=== PATIENT | male | born 1965 | race Caucasian/White ===

== ENCOUNTER 2018-07-19 09:24 | Inpatient (IN) | payer OTHER ==
[2018-07-19 10:27] VITALS: BMI 24.1
--- NOTE | 2018-07-19 12:28 | HP ---
CIWA Score - Admission Criteria OASAS Guidelines: Admission for Medically Managed Detox: Requires at least one of the followin. CIWA greater than 12 2. Seizures within the past 24 hours 3. Delirium tremens within the past 24 hours 4. Hallucinations within the past 24 hours 5. Acute intervention needed for co occurring medical disorder 6. Acute intervention needed for co occurring psychiatric disorder 7. Severe withdrawal that cannot be handled at a lower level of care (continued vomiting, continued diarrhea, abnormal vital signs) requiring intravenous medication and/or fluids 8. Admission ROS S - HPI Allergies/Adverse Reactions: Allergies Allergy/AdvReac Type Severity Reaction Status Date / Time No Known Allergies Allergy Verified 07/19/18 13:14 History of Present Illness: pt here requesting rehab for opiate and cocaine use ,referred by [facility] in [facility] where he has been x 6 months for MMTP , current daily dose 90 mg latest taken yesterday , reports 6 bags/day via inhalation , latest used today , denies knowingly using fentanyl . cocaine : "a little bit " , every 2 d, 50 $ /day denies IVDU , first age of use 14 from friends heroin ; since 1 year ago , used to have rx opiates after back surgery 2010 x 2 years , bought illicit opiates until he could no longer afford them and switched to heroin , occasional IVDU regularly via inhalation. tobacco : 1 ppd , does not want to stop in the past : cannabis , not used " in a while " PMHX : GIB 2 mo ago x 10 d [facility] no surgery , reports had BRBPR , told intestinal bleeder , no current bleeding, reports GERD PSHX : L-spine 2009 x 1 , tonsillectomy PSych : bipolar d.o , denies SI / HI meds : Latuda , Lamictal latest taken yesterday . 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 On probation x 3 years started 2 mo ago , monthly , for possession of weapon , total lifetime incarceration 4 years . Reference #: [id number] There are no results for the search terms that you entered. Exam Limitations: No Limitations - Ebola screening Have you traveled outside of the country in the last 21 days: No Have you had contact with anyone from an Ebola affected area: No Have you been sick,other than usual withdrawal symptoms: No Do you have a fever: No - Review of Systems Constitutional: No Symptoms Reported EENT: reports: Other (denies vision loss, + reading glasses , denies dysphagia ) Respiratory: reports: No Symptoms reported Cardiac: reports: No Symptoms Reported GI: reports: See HPI : reports: No Symptoms Reported Musculoskeletal: reports: Back Pain (chronic back pain) Integumentary: reports: No Symptoms Reported Neuro: reports: No Symptoms reported Endocrine: reports: No Symptoms Reported Psychiatric: reports: Orientated x3, Agitated, Anxious Patient History - Smoking Cessation Smoking history: Current every day smoker Have you smoked in the past 12 months: Yes Aproximately how many cigarettes per day: 20 Hx Chewing Tobacco Use: No Initiated information on smoking cessation: No - Substances Abused Cocaine Route: Inhalation Frequency: Daily Amount used: $50 Age of first use: 14 Date of Last Use: 07/17/18 Heroin Route: Inhalation Frequency: 1-2 times per week Amount used: 6 bags Age of first use: 52 Date of Last Use: 07/19/18 Family Disease History - Family Disease History Family Disease History: Other: Father (d. 80 , htn , hld, heart dz, [place] 50's), Mother (A , 79 , htn), Sister (6 , A & W ), Daughter (22 , A & W ) Admission Physical Exam S - Vital Signs Vital Signs: Vital Signs - 24 hr 07/19/18 10:24 Temperature 97.7 F Pulse Rate 64 Respiratory 18 Rate Blood Pressure 134/80 - Physical General Appearance: Yes: Mild Distress HEENTM: Yes: EOMI, Hearing grossly Normal, Normocephalic, Normal Voice, Other Respiratory: Yes: Chest Non-Tender, Lungs Clear, Normal Breath Sounds Neck: Yes: No masses,lesions,Nodules, Trachea in good position Cardiology: Yes: Regular Rhythm, Regular Rate, S1, S2 Abdominal: Yes: Normal Bowel Sounds, Non Tender, Soft Genitourinary: Yes: Within Normal Limits Back: Yes: Surgical Scar Musculoskeletal: Yes: Gait Steady Extremities: Yes: Normal Capillary Refill, Normal Range of Motion, Non-Tender Neurological: Yes: Motor Strength 5/5 [facility] Breath Alcohol Content Breath Alcohol Content: 0 Urine Drug Screen - Results Drug Screen Negative: No Urine Drug Screen Results: KELLI-Cocaine, OPI-Opiates, MTD-Methadone, FEN-Fentanyl Inpatient Rehab Admission - Rehab Decision to Admit Inpatient rehab admission?: No
[2018-07-19] MEDS ORDERED: MAGNESIUM CITRATE 300 ML BOTTLE PO PRN (12:35)
[2018-07-19] MEDS ORDERED: MAGNESIUM HYDROX 2400MG/30ML ORAL SUSPENSION 30 ML CUP PO PRN (12:35)
[2018-07-19] MEDS ORDERED: ACETAMINOPHEN 325 MG TABLET (FP) PO PRN (12:35)
[2018-07-19] MEDS ORDERED: MENTHOL/PHENOL 1 EACH UD MM PRN (12:35)
[2018-07-19] MEDS ORDERED: METHADONE HCL 10 MG TABLET PO ONE (13:59)
[2018-07-19] MEDS ORDERED: METHADONE 80 MG, METHADONE 10 MG PO ONE (14:30)
[2018-07-19 15:40] LABS: HEMATOCRIT 38.8 % (35.4-49); HEMOGLOBIN 13.5 GM/dL (11.7-16.9); MCH 31.5 pg (25.7-33.7); MCHC 34.9 g/dl (32.0-35.9); MEAN CELL VOLUME 90.1 fl (80-96); PLATELET COUNT 245 K/MM3 (134-434); RDW 14.3 % (11.9-15.9); WHITE BLOOD COUNT 8.4 K/mm3 (4.0-10.0)
[2018-07-19 15:56] LABS: ALBUMIN 3.5 g/dl (3.4-5.0); ALK PHOS 87 U/L (45-117); ANION GAP 4 MMOL/L (8-16); BILIRUBIN,TOTAL 0.8 mg/dL (0.2-1); BLOOD UREA NITROGEN 5 mg/dL (7-18); CALCIUM 8.8 mg/dL (8.5-10.1); CHLORIDE 102 mmol/L (98-107); CO2 33 mmol/L (21-32); CREATININE 0.8 mg/dL (0.55-1.3); GLUCOSE,RANDOM 81 mg/dL (74-106); POTASSIUM 3.5 mmol/L (3.5-5.1); SGOT/AST 47 U/L (15-37); SGPT/ALT 26 U/L (13-61); SODIUM 139 mmol/L (136-145); TOT PROT 7.1 g/dl (6.4-8.2)
[2018-07-19] MEDS ORDERED: METHADONE HCL 40 MG DISPERSABLE TABLET PO ONE (16:36)
--- NOTE | 2018-07-19 17:46 | CONSULT ---
[facility] Psychiatric Consult - Data Date of interview: 07/19/18 Admission source: [facility] Identifying data: First admission to [facility] for this 52 y/o male [facility] [place], for rehabilitation to address heroin/cocaine dependence co-morbid with bipolar disorder. Direct admission to [facility]. 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 Substance Abuse History: Confirmed by the patient in this interview. Details in current [facility] report : Smoking history: Current every day smoker. Have you smoked in the past 12 months: Yes. Aproximately how many cigarettes per day: 20. Hx Chewing Tobacco Use: No. Initiated information on smoking cessation: No. - Substances Abused. Cocaine. Route: Inhalation. Frequency: Daily. Amount used: $50. Age of first use: 14. Date of Last Use: 07/17/18. Heroin. Route: Inhalation. Frequency: 1-2 times per week. Amount used: 6 bags. Age of first use: 52. Date of Last Use: 07/19/18 Medical History: GERD, chronic lumbar pain and a history of tonsillectomy. Psychiatric History: Patient endorses a distant history of one psychiatric hospitalization in [place] (20 years ago). Diagnosed with Bipolar Disorder. Mr Roche is currently followed at the [facility] where he sees a psychiatrist for medication management (latuda 40 mg/daily + lamictal 50 mg/daily). Last taken on 07/18/18 as per self-report. Patient is also on [facility]. Denies history of suicide attempts. Physical/Sexual Abuse/Trauma History: Patient denies. Additional Comment: Urine Drug Screen Results: KELLI-Cocaine, OPI-Opiates, MTD- Methadone, FEN-Fentanyl. Noted. Mental Status Exam - Mental Status Exam Alert and Oriented to: Time, Place, Person Cognitive Function: Good Patient Appearance: Well Groomed (tattoos noted on arms and forearms) Mood: Hopeful, Euthymic Affect: Appropriate, Normal Range Patient Behavior: Appropriate, Cooperative Speech Pattern: Clear, Appropriate Voice Loudness: Normal Thought Process: Intact, Goal Oriented Thought Disorder: Not Present Hallucinations: Denies Suicidal Ideation: Denies Homicidal Ideation: Denies Insight/Judgement: Fair Sleep: Well Appetite: Good Muscle strength/Tone: Normal Gait/Station: Normal Psychiatric Findings - Problem List ([place] 1, 2,3) (1) Opioid dependence on agonist therapy Current Visit: Yes Status: Chronic (2) Cocaine dependence Current Visit: Yes Status: Chronic (3) Nicotine dependence Current Visit: Yes Status: Chronic (4) Bipolar disorder Current Visit: Yes Status: Chronic - Initial Treatment Plan Initial Treatment Plan: Psychoeducation. Sleep hygiene. Support. Motivational sessions. Resume latuda 40 mg po daily + lamictal 50 mg po daily (patient is a reliable historian). Side effects/benefits of both drugs are discussed with the patient. Made aware of risk of Keegan Alexis (lamictal). Mr Roche declares that he has not experienced any adverse effects from this regimen. Consents ( verbally) to follow this plan of care. Observation.
[2018-07-19] MEDS: THIAMINE HCL 100 MG TABLET (FP) PO SCH (21:42)
[2018-07-19 23:11] LABS: URINE APPEARANCE CLEAR; URINE BILIRUBIN NEGATIVE (<2.0 mg/dL); URINE COLOR STRAW; URINE GLUCOSE (UA) NEGATIVE (NEGATIVE); URINE KETONE NEGATIVE (NEGATIVE); URINE LEUK ESTERASE NEGATIVE (NEGATIVE); URINE NITRITE NEGATIVE (NEGATIVE); URINE PROTEIN NEGATIVE (NEGATIVE); URINE UROBILINOGEN NEGATIVE mg/dL (0.2-1.0)
[2018-07-20] MEDS ORDERED: METHADONE HCL 40 MG DISPERSABLE TABLET ONE (04:53)
[2018-07-20] MEDS ORDERED: METHADONE HCL 10 MG TABLET ONE (04:53)
[2018-07-20] MEDS ORDERED: METHADONE HCL 10 MG TABLET PO SCH (06:00)
[2018-07-20] MEDS: MAG HYDROX/AL HYDROX/SIMETH 30 ML UNIT-DOSE CUP PO PRN (06:22)
[2018-07-20] MEDS: METHADONE 80 MG, METHADONE 10 MG PO SCH (06:22)
[2018-07-20] MEDS: lamoTRIgine 25 MG TABLET PO SCH (10:38)
[2018-07-20] MEDS: LURASIDONE HCL 40 MG TABLET PO SCH (10:38)
[2018-07-20] MEDS: PRENATAL VITAMINS W/ FOLIC ACID TABLET (FP) PO SCH (10:38)
[2018-07-20] MEDS: IBUPROFEN 400 MG TABLET (FP) PO PRN (10:38)
[2018-07-20] MEDS: THIAMINE HCL 100 MG TABLET (FP) PO SCH (21:53)
[2018-07-21] MEDS ORDERED: METHADONE HCL 40 MG DISPERSABLE TABLET ONE (04:16)
[2018-07-21] MEDS ORDERED: METHADONE HCL 10 MG TABLET ONE (04:16)
[2018-07-21] MEDS: IBUPROFEN 400 MG TABLET (FP) PO PRN ×2 (06:19→22:01)
[2018-07-21] MEDS: METHADONE 80 MG, METHADONE 10 MG PO SCH (06:19)
[2018-07-21] MEDS: LURASIDONE HCL 40 MG TABLET PO SCH (10:17)
[2018-07-21] MEDS: NICOTINE POLACRILEX 2 MG GUM BC PRN (10:17)
[2018-07-21] MEDS: PRENATAL VITAMINS W/ FOLIC ACID TABLET (FP) PO SCH (10:17)
[2018-07-21] MEDS: lamoTRIgine 25 MG TABLET PO SCH (10:17)
[2018-07-21] MEDS: THIAMINE HCL 100 MG TABLET (FP) PO SCH (22:01)
[2018-07-22] MEDS ORDERED: METHADONE HCL 40 MG DISPERSABLE TABLET ONE (03:31)
[2018-07-22] MEDS ORDERED: METHADONE HCL 10 MG TABLET ONE (03:31)
[2018-07-22] MEDS: METHADONE 80 MG, METHADONE 10 MG PO SCH (06:37)
[2018-07-22] MEDS: MAG HYDROX/AL HYDROX/SIMETH 30 ML UNIT-DOSE CUP PO PRN ×2 (06:39→19:54)
[2018-07-22] MEDS: IBUPROFEN 400 MG TABLET (FP) PO PRN ×3 (06:39→21:54)
[2018-07-22] MEDS ORDERED: CYCLOBENZAPRINE HCL 5 MG TABLET PO PRN (09:43)
[2018-07-22] MEDS: LURASIDONE HCL 40 MG TABLET PO SCH (10:40)
[2018-07-22] MEDS: PRENATAL VITAMINS W/ FOLIC ACID TABLET (FP) PO SCH (10:40)
[2018-07-22] MEDS: lamoTRIgine 25 MG TABLET PO SCH (10:40)
[2018-07-22] MEDS: NICOTINE POLACRILEX 2 MG GUM BC PRN ×2 (17:15→21:56)
[2018-07-22] MEDS: THIAMINE HCL 100 MG TABLET (FP) PO SCH (21:54)
[2018-07-23] MEDS: MAG HYDROX/AL HYDROX/SIMETH 30 ML UNIT-DOSE CUP PO PRN ×2 (03:18→09:26)
[2018-07-23] MEDS ORDERED: METHADONE HCL 40 MG DISPERSABLE TABLET ONE (04:18)
[2018-07-23] MEDS ORDERED: METHADONE HCL 10 MG TABLET ONE (04:18)
[2018-07-23] MEDS: METHADONE 80 MG, METHADONE 10 MG PO SCH (06:44)
[2018-07-23] MEDS: lamoTRIgine 25 MG TABLET PO SCH (09:25)
[2018-07-23] MEDS: PRENATAL VITAMINS W/ FOLIC ACID TABLET (FP) PO SCH (09:25)
[2018-07-23] MEDS: LURASIDONE HCL 40 MG TABLET PO SCH (09:25)
--- NOTE | 2018-07-23 14:26 | PN ---
[facility] Progress Note (SOAP) Subjective: Client has thrown up twice today; first time it was "substantive" The next time it was clear. States a history of GI bleed 6 months ago. Last BM yesterday. States he has a BM every other day. Objective: 07/23/18 14:22 CBC WBC 8.4 K/mm3 (4.0-10.0) 07/19/18 13:00 RBC 4.30 M/mm3 (4.00-5.60) 07/19/18 13:00 Hgb 13.5 GM/dL (11.7-16.9) 07/19/18 13:00 Hct 38.8 % (35.4-49) 07/19/18 13:00 MCV 90.1 fl (80-96) 07/19/18 13:00 MCH 31.5 pg (25.7-33.7) 07/19/18 13:00 MCHC 34.9 g/dl (32.0-35.9) 07/19/18 13:00 RDW 14.3 % (11.9-15.9) 07/19/18 13:00 Plt Count 245 K/MM3 (134-434) 07/19/18 13:00 MPV 11.0 fl (7.5-11.1) 07/19/18 13:00 07/23/18 14:23 CMP Sodium 139 mmol/L (136-145) 07/19/18 13:00 Potassium 3.5 mmol/L (3.5-5.1) 07/19/18 13:00 Chloride 102 mmol/L (98-107) 07/19/18 13:00 Carbon Dioxide 33 mmol/L (21-32) H 07/19/18 13:00 Anion Gap 4 MMOL/L (8-16) L 07/19/18 13:00 BUN 5 mg/dL (7-18) L 07/19/18 13:00 Creatinine 0.8 mg/dL (0.55-1.3) 07/19/18 13:00 Creat Clearance w eGFR > 60 (>60) 07/19/18 13:00 Random Glucose 81 mg/dL (74-106) 07/19/18 13:00 Calcium 8.8 mg/dL (8.5-10.1) 07/19/18 13:00 Total Bilirubin 0.8 mg/dL (0.2-1) 07/19/18 13:00 AST 47 U/L (15-37) H 07/19/18 13:00 ALT 26 U/L (13-61) 07/19/18 13:00 Alkaline Phosphatase 87 U/L (45-117) 07/19/18 13:00 Total Protein 7.1 g/dl (6.4-8.2) 07/19/18 13:00 Albumin 3.5 g/dl (3.4-5.0) 07/19/18 13:00 07/23/18 14:23 Vital Signs (72 hours) 07/21/18 07/21/18 07/21/18 00:30 03:30 07:23 Temperature 98.2 F Pulse Rate 74 Respiratory 18 18 18 Rate Blood Pressure 126/70 07/22/18 07/22/18 07/22/18 00:30 03:30 07:03 Temperature 97.7 F Pulse Rate 81 Respiratory 18 18 18 Rate Blood Pressure 105/68 07/23/18 07/23/18 07/23/18 00:30 03:30 07:34 Temperature 97.9 F Pulse Rate 95 H Respiratory 18 18 18 Rate Blood Pressure 111/70 abdomen soft, non-tender, non-distended, positive bowel sounds all 4 quadrants. Assessment: 07/23/18 14:26 gastritis Plan: protonix given. Advised to increase liquids, ambulate.
[2018-07-23] MEDS: NICOTINE POLACRILEX 2 MG GUM BC PRN ×2 (14:31→21:41)
[2018-07-23] MEDS: MELATONIN 5 MG TABLETS PO PRN (21:40)
[2018-07-23] MEDS: THIAMINE HCL 100 MG TABLET (FP) PO SCH (21:40)
[2018-07-24] MEDS ORDERED: METHADONE HCL 10 MG TABLET ONE (05:15)
[2018-07-24] MEDS ORDERED: METHADONE HCL 40 MG DISPERSABLE TABLET ONE (05:15)
[2018-07-24] MEDS: METHADONE 80 MG, METHADONE 10 MG PO SCH (05:55)
[2018-07-24] MEDS: PRENATAL VITAMINS W/ FOLIC ACID TABLET (FP) PO SCH (10:01)
[2018-07-24] MEDS: LURASIDONE HCL 40 MG TABLET PO SCH ×2 (10:01→21:33)
[2018-07-24] MEDS: lamoTRIgine 25 MG TABLET PO SCH ×2 (10:01→21:33)
[2018-07-24] MEDS: PANTOPRAZOLE 20 MG TABLET (FP) PO SCH (10:02)
[2018-07-24] MEDS: THIAMINE HCL 100 MG TABLET (FP) PO SCH (21:33)
[2018-07-24] MEDS: MELATONIN 5 MG TABLETS PO PRN (21:34)
[2018-07-24] MEDS: IBUPROFEN 400 MG TABLET (FP) PO PRN (21:35)
[2018-07-25] MEDS ORDERED: METHADONE HCL 10 MG TABLET ONE (05:17)
[2018-07-25] MEDS ORDERED: METHADONE HCL 40 MG DISPERSABLE TABLET ONE (05:18)
[2018-07-25] MEDS: METHADONE 80 MG, METHADONE 10 MG PO SCH (06:20)
[2018-07-25] MEDS: NICOTINE POLACRILEX 2 MG GUM BC PRN (08:00)
[2018-07-25] MEDS: PRENATAL VITAMINS W/ FOLIC ACID TABLET (FP) PO SCH (10:31)
[2018-07-25] MEDS: PANTOPRAZOLE 20 MG TABLET (FP) PO SCH (10:31)
[2018-07-25] MEDS: IBUPROFEN 400 MG TABLET (FP) PO PRN ×2 (16:50→22:50)
[2018-07-25] MEDS: lamoTRIgine 25 MG TABLET PO SCH (21:35)
[2018-07-25] MEDS: THIAMINE HCL 100 MG TABLET (FP) PO SCH (21:35)
[2018-07-25] MEDS: LURASIDONE HCL 40 MG TABLET PO SCH (21:36)
[2018-07-25] MEDS ORDERED: LURASIDONE HCL 40 MG TABLET PO SCH (22:00)
[2018-07-26] MEDS ORDERED: METHADONE HCL 10 MG TABLET ONE (04:44)
[2018-07-26] MEDS ORDERED: METHADONE HCL 40 MG DISPERSABLE TABLET ONE (04:45)
[2018-07-26] MEDS: METHADONE 80 MG, METHADONE 10 MG PO SCH (06:23)
[2018-07-26] MEDS: NICOTINE POLACRILEX 2 MG GUM BC PRN ×3 (08:01→23:41)
[2018-07-26] MEDS: IBUPROFEN 400 MG TABLET (FP) PO PRN (09:50)
[2018-07-26] MEDS: PRENATAL VITAMINS W/ FOLIC ACID TABLET (FP) PO SCH (09:50)
[2018-07-26] MEDS: PANTOPRAZOLE 20 MG TABLET (FP) PO SCH (09:50)
[2018-07-26] MEDS: lamoTRIgine 25 MG TABLET PO SCH (23:41)
[2018-07-26] MEDS: LURASIDONE HCL 40 MG TABLET PO SCH (23:41)
[2018-07-26] MEDS: THIAMINE HCL 100 MG TABLET (FP) PO SCH (23:41)
[2018-07-26] MEDS: MELATONIN 5 MG TABLETS PO PRN (23:41)
[2018-07-27] MEDS ORDERED: METHADONE HCL 10 MG TABLET ONE (05:20)
[2018-07-27] MEDS ORDERED: METHADONE HCL 40 MG DISPERSABLE TABLET ONE (05:20)
[2018-07-27] MEDS: METHADONE 80 MG, METHADONE 10 MG PO SCH (06:15)
[2018-07-27] MEDS: NICOTINE POLACRILEX 2 MG GUM BC PRN ×2 (06:15→21:03)
[2018-07-27] MEDS: IBUPROFEN 400 MG TABLET (FP) PO PRN (06:16)
[2018-07-27] MEDS: PRENATAL VITAMINS W/ FOLIC ACID TABLET (FP) PO SCH (09:57)
[2018-07-27] MEDS: PANTOPRAZOLE 20 MG TABLET (FP) PO SCH (09:57)
[2018-07-27] MEDS: THIAMINE HCL 100 MG TABLET (FP) PO SCH (21:02)
[2018-07-27] MEDS: LURASIDONE HCL 40 MG TABLET PO SCH (21:02)
[2018-07-27] MEDS: lamoTRIgine 25 MG TABLET PO SCH (21:02)
[2018-07-27] MEDS: MELATONIN 5 MG TABLETS PO PRN (21:02)
[2018-07-28] MEDS ORDERED: METHADONE HCL 10 MG TABLET ONE (03:20)
[2018-07-28] MEDS ORDERED: METHADONE HCL 40 MG DISPERSABLE TABLET ONE (03:21)
[2018-07-28] MEDS: METHADONE 80 MG, METHADONE 10 MG PO SCH (06:29)
[2018-07-28] MEDS: PRENATAL VITAMINS W/ FOLIC ACID TABLET (FP) PO SCH (10:02)
[2018-07-28] MEDS: PANTOPRAZOLE 20 MG TABLET (FP) PO SCH (10:02)
[2018-07-28] MEDS: IBUPROFEN 400 MG TABLET (FP) PO PRN ×2 (10:03→21:05)
[2018-07-28] MEDS: THIAMINE HCL 100 MG TABLET (FP) PO SCH (21:03)
[2018-07-28] MEDS: LURASIDONE HCL 40 MG TABLET PO SCH (21:03)
[2018-07-28] MEDS: MELATONIN 5 MG TABLETS PO PRN (21:04)
[2018-07-28] MEDS: lamoTRIgine 25 MG TABLET PO SCH (21:04)
[2018-07-29] MEDS ORDERED: METHADONE HCL 10 MG TABLET ONE (04:02)
[2018-07-29] MEDS ORDERED: METHADONE HCL 40 MG DISPERSABLE TABLET ONE (04:03)
[2018-07-29] MEDS: METHADONE 80 MG, METHADONE 10 MG PO SCH (06:06)
[2018-07-29] MEDS: PANTOPRAZOLE 20 MG TABLET (FP) PO SCH (09:46)
[2018-07-29] MEDS: PRENATAL VITAMINS W/ FOLIC ACID TABLET (FP) PO SCH (09:46)
[2018-07-29] MEDS: IBUPROFEN 400 MG TABLET (FP) PO PRN ×2 (09:48→21:05)
[2018-07-29] MEDS: NICOTINE POLACRILEX 2 MG GUM BC PRN ×2 (09:49→21:07)
[2018-07-29] MEDS: MELATONIN 5 MG TABLETS PO PRN (21:06)
[2018-07-29] MEDS: LURASIDONE HCL 40 MG TABLET PO SCH (21:07)
[2018-07-29] MEDS: THIAMINE HCL 100 MG TABLET (FP) PO SCH (21:08)
[2018-07-29] MEDS: lamoTRIgine 25 MG TABLET PO SCH (21:08)
[2018-07-30] MEDS ORDERED: METHADONE HCL 40 MG DISPERSABLE TABLET ONE (04:20)
[2018-07-30] MEDS ORDERED: METHADONE HCL 10 MG TABLET ONE (04:20)
[2018-07-30] MEDS: METHADONE 80 MG, METHADONE 10 MG PO SCH (06:17)
[2018-07-30] MEDS: PRENATAL VITAMINS W/ FOLIC ACID TABLET (FP) PO SCH (10:19)
[2018-07-30] MEDS: PANTOPRAZOLE 20 MG TABLET (FP) PO SCH (10:19)
[2018-07-30] MEDS: NICOTINE POLACRILEX 2 MG GUM BC PRN ×2 (10:21→21:09)
[2018-07-30] MEDS: IBUPROFEN 400 MG TABLET (FP) PO PRN ×2 (10:21→21:08)
[2018-07-30] MEDS: hydrOXYzine PAMOATE 25 MG CAPSULE (FP) PO PRN ×2 (10:21→21:09)
--- NOTE | 2018-07-30 14:04 | PN ---
[facility] Progress Note Note: Patient has been complaining of difficulty to sleep not responding to Melatonin. Will add Belsomra 10 mg po HS prn for insomnia
[2018-07-30] MEDS: lamoTRIgine 25 MG TABLET PO SCH (21:07)
[2018-07-30] MEDS: THIAMINE HCL 100 MG TABLET (FP) PO SCH (21:07)
[2018-07-30] MEDS: LURASIDONE HCL 40 MG TABLET PO SCH (21:08)
[2018-07-30] MEDS ORDERED: SUVOREXANT 10 MG TABLET PO PRN (22:00)
[2018-07-31] MEDS ORDERED: METHADONE HCL 40 MG DISPERSABLE TABLET ONE (03:59)
[2018-07-31] MEDS ORDERED: METHADONE HCL 10 MG TABLET ONE (03:59)
[2018-07-31] MEDS: METHADONE 80 MG, METHADONE 10 MG PO SCH (06:08)
[2018-07-31] MEDS: PRENATAL VITAMINS W/ FOLIC ACID TABLET (FP) PO SCH (09:44)
[2018-07-31] MEDS: hydrOXYzine PAMOATE 25 MG CAPSULE (FP) PO PRN ×2 (09:45→21:11)
[2018-07-31] MEDS: IBUPROFEN 400 MG TABLET (FP) PO PRN ×2 (09:46→21:11)
[2018-07-31] MEDS: THIAMINE HCL 100 MG TABLET (FP) PO SCH (21:10)
[2018-07-31] MEDS: lamoTRIgine 25 MG TABLET PO SCH (21:10)
[2018-07-31] MEDS: MELATONIN 5 MG TABLETS PO PRN (21:10)
[2018-07-31] MEDS: LURASIDONE HCL 40 MG TABLET PO SCH (21:11)
[2018-07-31] MEDS: NICOTINE POLACRILEX 2 MG GUM BC PRN (21:12)
[2018-08-01] MEDS ORDERED: METHADONE HCL 10 MG TABLET ONE (03:16)
[2018-08-01] MEDS ORDERED: METHADONE HCL 40 MG DISPERSABLE TABLET ONE (03:16)
[2018-08-01] MEDS: METHADONE 80 MG, METHADONE 10 MG PO SCH (06:10)
[2018-08-01 07:05] VITALS: TEMP 97.9
--- NOTE | 2018-08-01 09:30 | PN ---
[facility] Progress Note Note: client with hx of COPD. Pharmacy notification that several psych medications affect respiration. Consultation for re-evaluation of medications by psych ordered.
[2018-08-01] MEDS: PRENATAL VITAMINS W/ FOLIC ACID TABLET (FP) PO SCH (10:10)
[2018-08-01] MEDS: NICOTINE POLACRILEX 2 MG GUM BC PRN ×2 (10:11→21:04)
[2018-08-01] MEDS: hydrOXYzine PAMOATE 25 MG CAPSULE (FP) PO PRN ×2 (10:12→21:04)
[2018-08-01] MEDS: IBUPROFEN 400 MG TABLET (FP) PO PRN ×2 (10:12→21:03)
--- NOTE | 2018-08-01 15:33 | PN ---
[facility] Progress Note Note: Client will be discharged tomorrow, getting aftercare at [place]. Dr. Jones is his primary care provider.
[2018-08-01] MEDS: lamoTRIgine 25 MG TABLET PO SCH (21:02)
[2018-08-01] MEDS: THIAMINE HCL 100 MG TABLET (FP) PO SCH (21:02)
[2018-08-01] MEDS: LURASIDONE HCL 40 MG TABLET PO SCH (21:03)
[2018-08-01] MEDS: MELATONIN 5 MG TABLETS PO PRN (21:04)
[2018-08-01] MEDS ORDERED: PANTOPRAZOLE 40 MG TABLET (FP) PO ONE (22:00)
[2018-08-02] MEDS ORDERED: METHADONE HCL 10 MG TABLET ONE (05:56)
[2018-08-02] MEDS ORDERED: METHADONE HCL 40 MG DISPERSABLE TABLET ONE (05:56)
[2018-08-02] MEDS ORDERED: METHADONE 80 MG, METHADONE 10 MG PO SCH (06:00)
--- NOTE | 2018-08-02 06:13 | PN ---
[facility] Progress Note Note: Patient is discharged today. Scripts for 30 days supply of medications(Latuda, Lamictal) are electronically transmitted to [facility] at [address] [place] [address]
[2018-08-02 06:54] VITALS: BP 111/58; PULSE 61
[2018-08-02] MEDS: PRENATAL VITAMINS W/ FOLIC ACID TABLET (FP) PO SCH (09:35)
[2018-08-02] MEDS: IBUPROFEN 400 MG TABLET (FP) PO PRN (09:36)
[2018-08-02] MEDS: hydrOXYzine PAMOATE 25 MG CAPSULE (FP) PO PRN (09:36)
[2018-08-02] MEDS: NICOTINE POLACRILEX 2 MG GUM BC PRN (09:38)
== END 2018-08-02 09:40 | disposition home or self-care (01) | DRG 772 ==
LOC: YASAS 09:24 → Y3W 14:22
PROVIDERS: ADMIT Neuromusculoskeletal Medicine & OMM; ATTEND Neuromusculoskeletal Medicine & OMM
PROC: HZ42ZZZ Group Counseling for Substance Abuse Treatment, Cognitive-Behavioral (ICD-10-PCS; principal; 2018-07-19)
DX: F14.20 Cocaine dependence, uncomplicated (principal); F11.20 Opioid dependence, uncomplicated; F17.210 Nicotine dependence, cigarettes, uncomplicated; F31.9 Bipolar disorder, unspecified; K29.70 Gastritis, unspecified, without bleeding
CPT/HCPCS: 36415; 80053; 81003; 85027; 86593

== ENCOUNTER 2021-03-15 14:38 | Inpatient (IN) | payer OTHER ==
[2021-03-15] MEDS ORDERED: MAGNESIUM HYDROX 2400MG/30ML ORAL SUSPENSION 30 ML CUP PO PRN (17:33)
[2021-03-15] MEDS ORDERED: MAGNESIUM CITRATE 300 ML BOTTLE PO PRN (17:33)
[2021-03-15] MEDS ORDERED: P-EPHED 60MG/TRIPROLIDI 2.5MG TABLET PO PRN (17:33)
[2021-03-15] MEDS ORDERED: NICOTINE 10 MG CARTRIDGE (INHALER) IH PRN (17:33)
[2021-03-15] MEDS ORDERED: MAG HYDROX/AL HYDROX/SIMETH 30 ML UNIT-DOSE CUP PO PRN (17:33)
[2021-03-15] MEDS ORDERED: guaiFENesin 200 MG/10 ML 10 ML UNIT-DOSE CUPS PO PRN (17:33)
[2021-03-15] MEDS ORDERED: ACETAMINOPHEN 325 MG TABLET (FP) PO PRN (17:33)
[2021-03-15] MEDS ORDERED: LOPERAMIDE HCL 2 MG CAPSULE PO PRN (17:33)
[2021-03-15] MEDS ORDERED: IBUPROFEN 400 MG TABLET (FP) PO PRN (17:33)
[2021-03-16 00:36] VITALS: BMI 25.4
[2021-03-16] MEDS ORDERED: TUBERCULIN PPD 5 TU/0.1ML VIAL ID ONE ×2 (00:42→03:20)
[2021-03-16] MEDS: THIAMINE HCL 100 MG TABLET (FP) PO SCH ×2 (00:49→21:31)
[2021-03-16] MEDS: MELATONIN 5 MG TABLETS PO SCH ×2 (00:49→21:31)
[2021-03-16] MEDS ORDERED: methaDONE HCL 40 MG DISPERSABLE TABLET PO SCH (07:45)
[2021-03-16] MEDS ORDERED: methaDONE HCL 10 MG TABLET PO SCH (07:45)
[2021-03-16] MEDS ORDERED: methaDONE HCL 10 MG TABLET ONE (08:57)
[2021-03-16] MEDS ORDERED: methaDONE HCL 40 MG DISPERSABLE TABLET ONE (08:58)
[2021-03-16] MEDS: PRENATAL VITAMINS W/ FOLIC ACID TABLET (FP) PO SCH (09:10)
[2021-03-16] MEDS: PANTOPRAZOLE 20 MG TABLET PO SCH ×2 (09:10→21:31)
[2021-03-16] MEDS: NICOTINE 14 MG/24 HOURS TOPICAL PATCH TD SCH (09:10)
[2021-03-16 10:51] LABS: HEMOGLOBIN 11.3 GM/dL (11.7-16.9); MCH 31.7 pg (25.7-33.7); MCHC 34.2 g/dl (32.0-35.9); MEAN CELL VOLUME 92.6 fl (80-96); MEAN PLT VOLUME 10.7 fl (7.5-11.1); PLATELET COUNT 239 10^3/uL (134-434); RBC 3.57 M/mm3 (4.00-5.60); RDW 14.4 % (11.9-15.9); WHITE BLOOD COUNT 5.8 K/mm3 (4.0-10.0)
[2021-03-16 10:58] LABS: CALCIUM 8.6 mg/dL (8.5-10.1)
[2021-03-16 10:59] LABS: ALBUMIN 2.8 g/dl (3.4-5.0); BLOOD UREA NITROGEN 7.6 mg/dL (7-18)
[2021-03-16 11:02] LABS: CREATININE 0.8 mg/dL (0.55-1.3)
[2021-03-16 11:03] LABS: BILIRUBIN,TOTAL 0.3 mg/dL (0.2-1); TOT PROT 6.2 g/dl (6.4-8.2)
[2021-03-16] MEDS ORDERED: SUVOREXANT 10 MG TABLET PO PRN (22:00)
[2021-03-17] MEDS ORDERED: methaDONE HCL 10 MG TABLET ONE (02:49)
[2021-03-17] MEDS ORDERED: methaDONE HCL 40 MG DISPERSABLE TABLET ONE (02:49)
[2021-03-17] MEDS: LURASIDONE HCL 20 MG TABLET PO SCH (12:19)
[2021-03-17] MEDS: PRENATAL VITAMINS W/ FOLIC ACID TABLET (FP) PO SCH (12:19)
[2021-03-17] MEDS: hydrOXYzine PAMOATE 25 MG CAPSULE (FP) PO PRN ×2 (12:19→21:26)
[2021-03-17] MEDS: PANTOPRAZOLE 20 MG TABLET PO SCH ×2 (12:19→21:26)
[2021-03-17] MEDS: NICOTINE 14 MG/24 HOURS TOPICAL PATCH TD SCH (12:21)
[2021-03-17] MEDS: THIAMINE HCL 100 MG TABLET (FP) PO SCH (21:26)
[2021-03-17] MEDS: MELATONIN 5 MG TABLETS PO SCH (21:26)
[2021-03-18] MEDS ORDERED: methaDONE HCL 10 MG TABLET ONE (03:22)
[2021-03-18] MEDS ORDERED: methaDONE HCL 40 MG DISPERSABLE TABLET ONE (03:22)
[2021-03-18 07:18] VITALS: BP 102/67; PULSE 73; TEMP 97.5
[2021-03-18] MEDS: PRENATAL VITAMINS W/ FOLIC ACID TABLET (FP) PO SCH (09:49)
[2021-03-18] MEDS: PANTOPRAZOLE 20 MG TABLET PO SCH (09:49)
[2021-03-18] MEDS: NICOTINE 14 MG/24 HOURS TOPICAL PATCH TD SCH (09:49)
[2021-03-18] MEDS: LURASIDONE HCL 20 MG TABLET PO SCH (09:49)
== END 2021-03-18 09:55 | disposition home or self-care (01) | DRG 772 ==
LOC: YASAS 14:38 → Y5N 19:29
PROVIDERS: ADMIT Allergy & Immunology; ATTEND Allergy & Immunology
PROC: HZ42ZZZ Group Counseling for Substance Abuse Treatment, Cognitive-Behavioral (ICD-10-PCS; principal; 2021-03-15)
DX: F11.20 Opioid dependence, uncomplicated (principal); F14.20 Cocaine dependence, uncomplicated; F17.210 Nicotine dependence, cigarettes, uncomplicated; F31.9 Bipolar disorder, unspecified; G47.00 Insomnia, unspecified; K21.9 Gastro-esophageal reflux disease without esophagitis; M54.50 Low back pain, unspecified; G89.29 Other chronic pain; Z87.19 Personal history of other diseases of the digestive system
CPT/HCPCS: 36415; 80053; 85027; 86780; C9803; U0003; U0005

== ENCOUNTER 2021-10-03 14:36 | Emergency (ER) | payer OTHER ==
[2021-10-03 14:48] VITALS: BP 135/94; TEMP 97.9; BMI 26.4
[2021-10-03] MEDS ORDERED: SUCRALFATE 1 GM TABLET (FP) PO ONE (19:14)
[2021-10-03] MEDS ORDERED: MAG HYDROX/AL HYDROX/SIMETH 30 ML UNIT-DOSE CUP PO ONE (19:14)
[2021-10-03] MEDS ORDERED: ACETAMINOPHEN 1000 MG/100 ML BAG IVPB ONE (19:14)
[2021-10-03] MEDS ORDERED: FAMOTIDINE 20 MG/50 ML IVPB 20 MG/50 ML MG IVPB ONE (19:14)
[2021-10-03] MEDS ORDERED: ACETAMINOPHEN INJECTION 100 ML IVPB ONE (19:29)
[2021-10-03] MEDS ORDERED: SUCRALFATE 1 GM TABLET (FP) ONE (19:29)
[2021-10-03] MEDS ORDERED: MAG HYDROX/AL HYDROX/SIMETH 30 ML UNIT-DOSE CUP ONE (19:29)
[2021-10-03] MEDS ORDERED: FAMOTIDINE 10 MG/ML VIAL IVPB ONE (19:30)
[2021-10-03 20:11] LABS: BASO % 1.3 % (0-2.0); EOS % 3.8 % (0-4.5); HEMATOCRIT 40.9 % (35.4-49); HEMOGLOBIN 13.5 GM/dL (11.7-16.9); LYMPH % 31.5 % (8-40); MCH 30.1 pg (25.7-33.7); MCHC 33.1 g/dl (32.0-35.9); MEAN CELL VOLUME 91.2 fl (80-96); MEAN PLT VOLUME 11.1 fl (7.5-11.1); MONO % 13.8 % (3.8-10.2); NEUT % 49.6 % (42.8-82.8); PLATELET COUNT 222 10^3/uL (134-434); RBC 4.49 M/mm3 (4.00-5.60); RDW 14.5 % (11.9-15.9); WHITE BLOOD COUNT 8.2 K/mm3 (4.0-10.0)
[2021-10-03 20:31] LABS: BLOOD UREA NITROGEN 15.4 mg/dL (7-18)
[2021-10-03 20:35] LABS: BILIRUBIN,TOTAL 0.5 mg/dL (0.2-1); CREATININE 1.8 mg/dL (0.55-1.3); TOT PROT 7.8 g/dl (6.4-8.2)
[2021-10-03] MEDS ORDERED: LACTATED RINGERS SOLUTION 1000 ML INFUS.BAG IV ONE (20:45)
[2021-10-03 23:07] VITALS: PULSE 87
== END 2021-10-03 23:12 | disposition home or self-care (01) ==
LOC: JER 14:36
PROC: 3E0333Z Introduction of Anti-inflammatory into Peripheral Vein, Percutaneous Approach (ICD-10-PCS; principal; 2021-10-03)
PROC: 3E033GC Introduction of Other Therapeutic Substance into Peripheral Vein, Percutaneous Approach (ICD-10-PCS; 2021-10-03)
DX: R10.11 Right upper quadrant pain (principal)
CPT/HCPCS: 36415; 71046-TC-FY; 76705-TC; 80053; 83690; 84484; 85025; 93005; 93010; 99285-25